=== PATIENT | female | born 1965 | race Hispanic/Latino ===

== ENCOUNTER 2017-06-26 13:39 | Emergency (ER) | payer SELFPAY ==
[2017-06-26] MEDS ORDERED: Ketorolac Tromethamine 30 MG/ML VIAL ONE (17:08)
[2017-06-26] MEDS ORDERED: Diazepam 5 MG TAB ONE (17:26)
[2017-06-26] MEDS ORDERED: Acetaminophen/Codeine 30-300mg Tablet ONE (18:19)
== END 2017-06-26 18:37 | disposition home or self-care (01) ==
LOC: ERS 13:39
DX: M54.5 Low back pain (principal); E78.5 Hyperlipidemia, unspecified; F17.200 Nicotine dependence, unspecified, uncomplicated
CPT/HCPCS: 96372; 99283; J1885

== ENCOUNTER 2018-03-31 15:52 | Emergency (ER) | payer SELFPAY ==
--- NOTE | 2018-03-31 16:59 | RAD ---
CHEST ONE VIEW PORTABLE 03/31/18 HISTORY: 52-year-old female with history of cough for three weeks, not getting better. COMPARISON: 06/30/16. FINDINGS: Monitor leads overlie the chest. Patchy alveolar parenchymal process in the right lower lobe, evidenc e for pneumonia. The left lung is clear. No pleural effusion. IMPRESSION: Patchy alveolar parenchymal process in the right lower lobe evidence for right lower pneumonia. POS: [facility]
[2018-03-31 17:05] LABS: #Eosinphils 0.4 thou/uL (0.0-0.7); #Lymphocytes 1.7 thou/uL (1.20-3.40); #Monocytes 0.5 thou/uL (0.11-0.59); #Neutrophils 3.6 thou/uL (1.40-6.50); %Basophils 0.4 % (0.0-1.0); %Eosinophils 6.8 % (0.0-10.0); %Lymphocytes 26.8 % (21.0-51.0); %Monocytes 8.3 % (0.0-10.0); %Neutrophils 57.8 % (42.0-75.0); Hemoglobin 11.2 g/dL (12.0-16.0); Mean Corpuscular HGB CONC 31.3 g/dL (32.0-36.0); Mean Corpuscular Hemoglobin 27.3 pg (27.0-31.0); Mean Corpuscular Volume 87.2 fL (78.0-98.0); Platelet Count 323 thou/uL (130-400); RBC Distribution Width 13.3 % (11.5-14.5); White Blood Cell (WBC) Count 6.2 thou/uL (4.8-10.8)
[2018-03-31 17:28] LABS: ALT (SGPT) 20 U/L (8-55); AST (SGOT) 17 U/L (5-34); Albumin 4.1 g/dL (3.5-5.0); Alkaline Phosphatase 73 U/L (40-150); Anion Gap 11 mmol/L (10-20); BUN (Urea Nitrogen) 14 mg/dL (9.8-20.1); Bilirubin, Total 0.2 mg/dL (0.2-1.2); Calc. Creatinine Clearance 0 mL/min (70-130); Calcium 9.6 mg/dL (7.8-10.44); Carbon Dioxide 27 mmol/L (22-29); Chloride 106 mmol/L (98-107); Estimated GFR-MDRD 82; Globulin 3.8 g/dL (2.4-3.5); Glucose 116 mg/dL (70-105); Potassium 3.8 mmol/L (3.5-5.1); Protein, Total 7.9 g/dL (6.0-8.3); Sodium 140 mmol/L (136-145)
[2018-03-31] MEDS ORDERED: Dexamethasone 4 mg/ml Vial ONE (17:49)
[2018-03-31] MEDS ORDERED: cefTRIAXone\\ROCEPHIN 1 GM VIAL ONE (17:49)
[2018-03-31] MEDS ORDERED: Azithromycin 250 MG TAB ONE (18:24)
[2018-03-31] MEDS ORDERED: Acetaminophen 500 MG TAB ONE (18:24)
== END 2018-03-31 19:30 | disposition home or self-care (01) ==
LOC: ERS 15:52
DX: J18.9 Pneumonia, unspecified organism (principal); E78.5 Hyperlipidemia, unspecified
CPT/HCPCS: 36415; 71045; 80053; 85025; 94640; 96365; 96375; J0696; J1100

== ENCOUNTER 2018-06-27 15:46 | Emergency (ER) | payer SELFPAY | END 2018-06-27 16:37 | disposition home or self-care (01) | LOC: ERS 15:46 | DX: B86 Scabies (principal); E78.5 Hyperlipidemia, unspecified | CPT/HCPCS: 99282 ==

== ENCOUNTER 2019-06-05 07:48 | Emergency (ER) | payer SELFPAY ==
[2019-06-05 08:28] LABS: #Eosinphils 0.2 thou/uL (0.0-0.7); #Lymphocytes 1.4 thou/uL (1.20-3.40); #Monocytes 0.4 thou/uL (0.11-0.59); #Neutrophils 4.4 thou/uL (1.40-6.50); %Basophils 0.2 % (0.0-1.0); %Eosinophils 3.8 % (0.0-10.0); %Lymphocytes 21.2 % (21.0-51.0); %Monocytes 6.2 % (0.0-10.0); %Neutrophils 68.7 % (42.0-75.0); Hemoglobin 13.5 g/dL (12.0-16.0); Mean Corpuscular HGB CONC 33.6 g/dL (32.0-36.0); Mean Corpuscular Volume 89.5 fL (78.0-98.0); Mean Platelet Volume 7.4 fL (7.4-10.4); Platelet Count 270 thou/uL (130-400); RBC Distribution Width 12.2 % (11.5-14.5); Red Blood Cell (RBC) Count 4.49 mill/uL (4.20-5.40); White Blood Cell (WBC) Count 6.4 thou/uL (4.8-10.8)
[2019-06-05] MEDS ORDERED: Mag-Al 1200 mg/1200 mg/30 ML UDCUP ONE (08:49)
[2019-06-05] MEDS ORDERED: Lidocaine Viscous Sol 2% 15 ml UD Cup ONE (08:49)
[2019-06-05 09:01] LABS: ALT (SGPT) 22 U/L (8-55); AST (SGOT) 16 U/L (5-34); Albumin 4.3 g/dL (3.5-5.0); Alkaline Phosphatase 85 U/L (40-110); Anion Gap 12 mmol/L (10-20); BUN (Urea Nitrogen) 11 mg/dL (9.8-20.1); Bilirubin, Total 0.8 mg/dL (0.2-1.2); Calc. Creatinine Clearance 0 mL/min (70-130); Calcium 9.5 mg/dL (7.8-10.44); Carbon Dioxide 27 mmol/L (22-29); Chloride 102 mmol/L (98-107); Estimated GFR-MDRD 85; Globulin 3.5 g/dL (2.4-3.5); Glucose 102 mg/dL (70-105); Potassium 3.9 mmol/L (3.5-5.1); Protein, Total 7.8 g/dL (6.0-8.3); Sodium 137 mmol/L (136-145)
[2019-06-05 09:08] LABS: Bacteria/HPF 1+ HPF (None Seen); Bilirubin Negative (Negative); Blood, Urine 1+ (Negative); Clarity Clear (Clear); Glucose, Urine (Dipstick) Normal (Negative); Leukocyte Negative Leu/uL (Negative); Nitrite Negative (Negative); Protein, Urine (Dipstick) 20 mg/dL (Neg-Trace); RBC/HPF 0-3 HPF (0-3); Urobilinogen Normal mg/dL (Less than 2); WBC/HPF 0-3 HPF (0-3)
--- NOTE | 2019-06-05 09:32 | RAD ---
XR Chest 1 View Portable HISTORY: Shortness of breath and palpitations COMPARISON: 03/31/2018 FINDINGS: The heart size is normal. The lungs are without focal areas of consolidation, pneumothorax or pleural effusions. IMPRESSION: No radiographic evidence of acute cardiopulmonary process.
[2019-06-05] MEDS ORDERED: Pantoprazole 40 MG VIAL ONE (10:54)
[2019-06-05] MEDS ORDERED: Dicyclomine 20 MG TAB ONE (10:54)
--- NOTE | 2019-06-05 11:41 | ULT ---
Right upper quadrant ultrasound: 06/05/2019 COMPARISON: None HISTORY: Abdominal pain, history of cholecystectomy TECHNIQUE: Multiplanar grayscale sonographic imaging right upper quadrant pain FINDINGS: The imaged pancreas is grossly unremarkable. However, the head, the distal body, and the ta il obscured by bowel gas. The hepatic parenchyma is heterogeneous and echogenic, suggesting hepatocellular disease, such as hep atic steatosis. The common bile duct is dilated, measuring 7-8 mm. This is likely on the basis of prior cholecystecto my. Right kidney measures 9.7 cm in craniocaudal dimension and demonstrates no evidence for stone, hydron ephrosis, or mass lesion. IMPRESSION: Status post cholecystectomy. Increased echogenicity of the hepatic parenchyma suggesting steatosis.
--- NOTE | 2019-06-08 10:01 | EKG ---
Test Reason : Blood Pressure : / mmHG Vent. Rate : 070 BPM Atrial Rate : 070 BPM P-R Int : 140 ms QRS Dur : 074 ms QT Int : 390 ms P-R-T Axes : 021 038 054 degrees QTc Int : 421 ms Normal sinus rhythm Normal ECG Confirmed by SHERRY DOTSON D.O. ([id number]), rewrite editor CHARLOTTE MARY ([id number]) on 06/08/2019 10:00:37 AM Referred By: Confirmed By:SHERRY DOTSON D.O.
== END 2019-06-05 13:17 | disposition home or self-care (01) ==
LOC: ERS 07:48
DX: K21.9 Gastro-esophageal reflux disease without esophagitis (principal); R73.03 Prediabetes; E78.5 Hyperlipidemia, unspecified
CPT/HCPCS: 71045; 76705; 80053; 81003; 81015; 83690; 84484; 85025; 87086; 93005; 96361; 96374; C9113

== ENCOUNTER 2019-08-13 02:43 | Emergency (ER) | payer SELFPAY ==
--- NOTE | 2019-08-13 07:27 | RAD ---
Exam: Chest one view HISTORY:Cough. Comparison: 06/05/2019 FINDINGS: Cardiac silhouette: Normal Aorta: Unremarkable Pulmonary vessels: Normal Costophrenic angles: Clear LUNGS: No masses or consolidation. Pneumothorax: None Osseous abnormalities: None IMPRESSION: No acute cardiopulmonary process.
== END 2019-08-13 04:32 | disposition home or self-care (01) ==
LOC: ERS 02:43
DX: J20.9 Acute bronchitis, unspecified (principal); E78.5 Hyperlipidemia, unspecified; E78.00 Pure hypercholesterolemia, unspecified; F17.210 Nicotine dependence, cigarettes, uncomplicated; Z71.6 Tobacco abuse counseling
CPT/HCPCS: 71045; 87804; 99406

== ENCOUNTER 2021-11-04 13:00 | Emergency (ER) | payer SELFPAY ==
[2021-11-04 14:04] LABS: #Eosinphils 0.5 thou/uL (0.0-0.7); #Lymphocytes 1.7 thou/uL (1.20-3.40); #Monocytes 0.6 thou/uL (0.11-0.59); #Neutrophils 4.7 thou/uL (1.40-6.50); %Basophils 0.6 % (0.0-1.0); %Eosinophils 7.1 % (0.0-10.0); %Lymphocytes 22.5 % (21.0-51.0); %Neutrophils 61.8 % (42.0-75.0); Hemoglobin 11.8 g/dL (12.0-16.0); Mean Corpuscular HGB CONC 32.3 g/dL (32.0-36.0); Mean Corpuscular Hemoglobin 29.8 pg (27.0-31.0); Mean Corpuscular Volume 92.4 fL (78.0-98.0); Mean Platelet Volume 7.2 fL (7.4-10.4); Platelet Count 270 thou/uL (130-400); RBC Distribution Width 11.8 % (11.5-14.5); Red Blood Cell (RBC) Count 3.96 mill/uL (4.20-5.40); White Blood Cell (WBC) Count 7.7 thou/uL (4.8-10.8)
[2021-11-04 14:10] LABS: BHCG - Serum Negative (NEGATIVE); Pregs Control Background? CLEAR/WHITE (CLR/WHITE); Pregs Control Bar Appear? YES (CONTROL BAR)
[2021-11-04 14:27] LABS: ALT (SGPT) 20 U/L (8-55); AST (SGOT) 15 U/L (5-34); Albumin 4.1 g/dL (3.5-5.0); Alkaline Phosphatase 100 U/L (40-110); Anion Gap 13 mmol/L (10-20); BUN (Urea Nitrogen) 14 mg/dL (9.8-20.1); Bilirubin, Total 0.5 mg/dL (0.2-1.2); Calc. Creatinine Clearance 0 mL/min (70-130); Calcium 9.5 mg/dL (7.8-10.44); Carbon Dioxide 28 mmol/L (22-29); Chloride 101 mmol/L (98-107); Globulin 3.8 g/dL (2.4-3.5); Glucose 85 mg/dL (70-105); Lipase 13 U/L (8-78); Potassium 3.5 mmol/L (3.5-5.1); Protein, Total 7.9 g/dL (6.0-8.3); Sodium 138 mmol/L (136-145)
== END 2021-11-04 16:17 | disposition home or self-care (01) ==
LOC: ERS 13:00
DX: R07.89 Other chest pain (principal); M54.2 Cervicalgia; E78.5 Hyperlipidemia, unspecified; E78.00 Pure hypercholesterolemia, unspecified; F17.210 Nicotine dependence, cigarettes, uncomplicated
CPT/HCPCS: 36415; 71045; 80053; 83690; 84484; 84703; 85025; 93005

== ENCOUNTER 2022-01-22 15:40 | Emergency (ER) | payer OTHER, SELFPAY ==
[2022-01-22 16:15] LABS: #Eosinphils 0.4 thou/uL (0.0-0.7); #Lymphocytes 1.9 thou/uL (1.20-3.40); #Monocytes 0.4 thou/uL (0.11-0.59); #Neutrophils 4.9 thou/uL (1.40-6.50); %Basophils 0.3 % (0.0-1.0); %Eosinophils 4.9 % (0.0-10.0); %Monocytes 5.8 % (0.0-10.0); Hemoglobin 12.3 g/dL (12.0-16.0); Mean Corpuscular HGB CONC 33.4 g/dL (32.0-36.0); Mean Corpuscular Hemoglobin 30.2 pg (27.0-31.0); Mean Corpuscular Volume 90.6 fL (78.0-98.0); Mean Platelet Volume 7.3 fL (7.4-10.4); Platelet Count 257 thou/uL (130-400); RBC Distribution Width 12.4 % (11.5-14.5); Red Blood Cell (RBC) Count 4.05 mill/uL (4.20-5.40); White Blood Cell (WBC) Count 7.7 thou/uL (4.8-10.8)
[2022-01-22 16:24] LABS: PTT 47.2 sec (22.9-36.1); Prothrombin Time 13.5 sec (12.0-14.7)
[2022-01-22] MEDS ORDERED: Acetaminophen 500 MG TAB ONE (16:33)
[2022-01-22 16:57] LABS: ALT (SGPT) 21 U/L (8-55); AST (SGOT) 17 U/L (5-34); Albumin 4.1 g/dL (3.5-5.0); Alkaline Phosphatase 98 U/L (40-110); Anion Gap 13 mmol/L (10-20); BUN (Urea Nitrogen) 15 mg/dL (9.8-20.1); Bilirubin, Total 0.4 mg/dL (0.2-1.2); Calc. Creatinine Clearance 0 mL/min (70-130); Calcium 9.3 mg/dL (7.8-10.44); Carbon Dioxide 27 mmol/L (22-29); Chloride 103 mmol/L (98-107); Estimated GFR 76; Glucose 97 mg/dL (70-105); Lipase 14 U/L (8-78); Potassium 3.3 mmol/L (3.5-5.1); Protein, Total 8.1 g/dL (6.0-8.3); Sodium 140 mmol/L (136-145)
== END 2022-01-22 19:09 | disposition home or self-care (01) ==
LOC: ERS 15:40
DX: M25.552 Pain in left hip (principal); E78.00 Pure hypercholesterolemia, unspecified; F17.210 Nicotine dependence, cigarettes, uncomplicated; W01.0XXA Fall on same level from slipping, tripping and stumbling without subsequent striking against object, initial encounter
CPT/HCPCS: 36415; 72170; 80053; 83690; 84484; 85025; 85610; 85730

== ENCOUNTER 2022-01-28 14:42 | Emergency (ER) | payer OTHER, SELFPAY ==
[2022-01-28] MEDS ORDERED: Ketorolac Tromethamine 30 MG/ML VIAL ONE (15:35)
== END 2022-01-28 16:11 | disposition home or self-care (01) ==
LOC: ERS 14:42
DX: M54.50 Low back pain, unspecified (principal); E78.5 Hyperlipidemia, unspecified; F17.210 Nicotine dependence, cigarettes, uncomplicated; W18.30XA Fall on same level, unspecified, initial encounter
CPT/HCPCS: 72131; 96372; J1885

== ENCOUNTER 2025-03-10 10:25 | Emergency (ER) | payer SELFPAY ==
[2025-03-10 11:15] LABS: CAUTI Indications for Culture Pelvic or flank pain; Glucose, Urine (Dipstick) Normal (Negative); Leukocyte 25 Leu/uL (Negative); Protein, Urine (Dipstick) Negative (Neg-Trace); Specific Gravity, Urine 1.035 (1.002-1.036)
[2025-03-10 11:16] LABS: Bacteria/HPF 1+ HPF (None Seen)
[2025-03-10 11:17] LABS: Urine Culture Reflex No No
[2025-03-10] MEDS ORDERED: Ketorolac Tromethamine 30 MG (1 mL) VIAL ONE (12:03)
== END 2025-03-10 13:58 | disposition home or self-care (01) ==
LOC: ERS 10:25
DX: M54.42 Lumbago with sciatica, left side (principal); E11.9 Type 2 diabetes mellitus without complications; F17.210 Nicotine dependence, cigarettes, uncomplicated
CPT/HCPCS: 81001; 96372; 99284; J1885